=== PATIENT | male | born 1965 | race Two or more races ===

== ENCOUNTER 2021-04-22 06:05 | Day surgery (SDC) | payer OTHER ==
[~2021-04-22 06:05] MED LIST: NORVASC10 MG PO; PRILOSEC OTC20 MG PO
== END 2021-04-22 17:50 | disposition home or self-care (01) ==
LOC: CIR.AMB 06:05
PROVIDERS: ATTEND Urology
DX: N43.2 Other hydrocele (principal); Z20.822 Contact with and (suspected) exposure to COVID-19